=== PATIENT | female | born 1960 | race Caucasian/White ===

== ENCOUNTER → 2021-10-10 07:32 | Outpatient (CLI) | payer OTHER, SELFPAY ==
--- NOTE | ~2021-10-10 | MR_ITS ---
EXAMINATION: MR knee LT wo con DATE: 10/10/2021 08:12 INDICATION: Left knee pain TECHNIQUE: Magnetic resonance imaging (MRI) of the left knee was performed without intravenous contra st. Sequences included coronal PD-weighted FSE, coronal PD-weighted FS FSE, sagittal T2-weighted FSE , sagittal PD-weighted FS FSE and axial PD weighted fat saturated FSE. COMPARISON: None. FINDINGS: Medial compartment: Medial meniscus is normal. Articular cartilage is normal. Lateral compartment: Lateral meniscus is normal. Partial-thickness chondral fissuring involving up to 50% the cartilage th ickness and without degenerative subchondral changes at the central aspect of the lateral tibial plat eau. Patellofemoral compartment: Deep chondral fissure at the central aspect of the lateral patellar facet with small focus of underly ing subarticular edema-like marrow signal change. Trochlear cartilage is normal. Ligaments and tendons: Anterior and posterior cruciate ligaments are normal. The medial collateral ligament and fibular tristan ateral ligament complex are normal. Patellar tendon is normal. Mild distal quadriceps tendinopathy wi thout tear. The visualized medial and lateral hamstring tendons as well as the iliotibial band are no rmal. Fluid: Physiologic amount of fluid in the joint space. No loose osteochondral bodies identified. Osseous/other: Bone alignment is normal. No fracture or pathologic marrow replacing process. IMPRESSION: 1. 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 2. Mild distal quadriceps tendinopathy without tear. Reviewed, dictated and finalized at location [facility]. IMPRESSION: 1. Mild osteoarthritis with high-grade chondromalacia at the lateral patellar f acet and moderate grade chondromalacia along the lateral tibial plateau. 2. Mild distal quadriceps tendinopathy without tear.
== END ==
PROVIDERS: PCP Family Medicine; Visit Provider Orthopaedic Surgery
DX: M17.12 Unilateral primary osteoarthritis, left knee (principal)
CPT/HCPCS: 73721

== ENCOUNTER 2024-09-23 14:15 | Outpatient (CLI) | payer OTHER, SELFPAY ==
--- NOTE | ~2024-09-23 | MR_ITS ---
MRI of the left knee Clinical history: Pain Technique: Coronal proton density and proton density-weighted images, sagittal proton-density and T2 fat-sat images, and axial proton-density fat-saturated images were acquired. Findings: Anterior and posterior cruciate ligaments are intact. Medial collateral ligament and the la teral collateral ligament complex are intact. Popliteus tendon is intact. Medial and lateral menisci are intact, without evidence of tear. There is focal chondromalacia along the lateral patellar facet with focal subchondral cystic change. There is diffuse mild to moderate chondral thinning of the lateral femoral condyle. There is focal cy stic enthesopathic change noted at the anterior proximal tibia near the ACL insertion. Extensor mechanism is intact. Minimal joint effusion present. No Gaines's cyst. Impression: Mild degenerative changes, as above. No ligamentous injury or meniscal tear seen. Reviewed, dictated and finalized at [facility]. Impression: Mild degenerative changes, as above. No ligamentous injury or meniscal tear seen.
== END 2024-09-23 14:16 | disposition home or self-care (01) ==
LOC: MICIMG 14:16
PROVIDERS: PCP Family Medicine; Visit Provider Orthopaedic Surgery
DX: M17.12 Unilateral primary osteoarthritis, left knee (principal); M22.42 Chondromalacia patellae, left knee; M24.159 Other articular cartilage disorders, unspecified hip; M76.892 Other specified enthesopathies of left lower limb, excluding foot
CPT/HCPCS: 73721

== ENCOUNTER 2024-11-01 13:08 | Emergency (ER) | payer OTHER, SELFPAY ==
--- NOTE | 2024-11-01 13:17 | ED_ITS ---
HPI - Skin/Abscess/Foreign Bdy General Chief complaint: Skin/Abscess/Foreign Body Stated complaint: RASH S/P TICK BITE/DIZZY Source: patient Mode of arrival: ambulatory Limitations: no limitations History of Present Illness HPI narrative: Patient is a 63-year-old female who presents to the clinic with complaints of a tick bite to her left shoulder x 1 week ago. She states that the tick's head came out this morning. She has noticed a rash down her left shoulder that is nontender and not draining. She endorses that she has had tick bites in the past, but normally had no rash associated with it. She has tried Hydrocortisone cream, but had minimal relief. Related Data Home Medications Medication Instructions Recorded Confirmed Last Taken Type red yeast rice 600 mg capsule 600 mg PO DAILY 05/23/23 09/25/24 Unknown History carvedilol 3.125 mg tablet (Coreg) 3.125 mg PO Q12H 09/16/24 11/01/24 Unknown History magnesium 250 mg tablet 240 mg PO BID 09/25/24 09/25/24 Unknown History Allergies Allergy/AdvReac Type Severity Reaction Status Date / Time Sulfa (Sulfonamide Allergy Mild rash Verified 11/01/24 13:31 Antibiotics) Review of Systems Review of Systems: CONSTITUTIONAL: Denies body aches, fever, chills, or sweats. EYES: Denies visual changes, redness, or discharge. ENT: Denies rhinorrhea, congestion CARDIOVASCULAR: Denies chest pain, palpitations, or edema. RESPIRATORY: Denies cough or dyspnea. GASTROINTESTINAL: Denies abdominal pain, nausea, vomiting, or diarrhea. SKIN: Reports tick bite and rash to left shoulder. MUSCULOSKELETAL: Denies back pain, joint pain, or myalgia. NEUROLOGIC: Denies headache, numbness, tingling, or weakness. All systems reviewed & are unremarkable except as noted in HPI and below PMFSH Past Medical History Medical History Small intestinal bacterial overgrowth (SIBO) OBED (obstructive sleep apnea) Skin cancer Allergies Surgical History Surgical History History of cholecystectomy H/O foot surgery H/O hand surgery Family History Family History Father Cancer Mother Diabetes mellitus Hypertension Cerebrovascular accident Thyroid disorder Grandparent Cancer Heart disease Social History Social History Smoking status: Never smoker Alcohol intake: current Substance use type: does not use Current Housing: Decline to Answer Concerned About Future Housing: Decline to Answer Difficulty Paying Gas/Electric Bills: Decline to Answer Difficulty Paying for Meds: Decline to Answer Currently Unemployed: Decline to Answer Education: Decline to Answer Difficulty w/ Childcare or Family Care: Decline to Answer Living arrangements: with family Additional occupation/education comments: [employer] Gender identity (if verbalized by the patient): Female Comments At time of signature, I have reviewed and agree with nursing past medical, surgical, social and family history unless otherwise noted. Please see nursing chart for further information. There is no relevant family history pertinent to the presenting complaint. Exam Narrative: GENERAL: Well-appearing HEAD: Normocephalic, atraumatic. EYES: conjunctivae clear, and EOMI. ENT: Mucous membranes moist. Oropharynx without edema, erythema or lesions. NECK: Supple. No lymphadenopathy CHEST: Clear to auscultation. HEART: Regular rate and rhythm. SKIN: Warm, dry. Raised, erythemic rash noted to left shoulder extending from deltoid into trapezius. Nontender to palpation. No drainage noted. NEURO: Alert and oriented x3. Course Course Level of Care: Express Care Visit Vital Signs Vital signs: Vital Signs Temperature 97.7 F 11/01/24 13:22 Pulse Rate 68 11/01/24 13:22 Respiratory Rate 16 11/01/24 13:22 Blood Pressure 138/83 11/01/24 13:22 Pulse Oximetry 100 11/01/24 13:22 Temperature 97.7 F 11/01/24 13:22 Pulse Rate 68 11/01/24 13:22 Respiratory Rate 16 11/01/24 13:22 Blood Pressure 138/83 11/01/24 13:22 Pulse Oximetry 100 11/01/24 13:22 Reviewed MDM - Skin/Abscess/Foreign Bdy MDM Narrative Medical decision making narrative: Discussed physical exam findings. Doxycycline and steroid given for tick bite. Advised supportive measures and signs/symptoms to go to the ER. Pt is appropriate for outpatient treatment and follow up. Differential Diagnosis Differential diagnosis: Likely allergic reaction to drug, insect bites, contact dermatitis and other (tick bite) Critical Care Time Critical Care Time Critical Care Time: No Discharge Plan Discharge Clinical Impression: Tick bite Qualifiers: Encounter type: initial encounter Site of tick bite: shoulder Laterality: left Qualified Code(s): S40.262A - Insect bite (nonvenomous) of left shoulder, initial encounter Patient Disposition: Home Condition: Stable Instructions: Lyme Disease (ED) Additional Instructions: Take the antibiotic as directed Keep site clean and dry For 30 days following the tick bite Watch for: Signs of infection including Increased pain, swelling, warmth, bite red streaks bleeding from the bite or pus draining from the bite. Fever. New rash, especially a bull’s eye appearance which is a characteristic of Lyme disease, or any rash that expands from the site. Flu like symptoms including fevers, chills, body aches, fatigue or headache. If you think the tick was attached for over 30 hours, especially deer tick, go to the emergency room Minor redness or swelling at the site of the tick bite is often a normal reaction and should subside within a few days. Follow up with your primary care provider as needed in 1 week Go to the ER for worsening symptoms or concerns Patient Language: Portuguese Prescriptions: New doxycycline hyclate 100 mg tablet 100 mg PO BID 10 Days Qty: 20 0RF prednisone 20 mg tablet 40 mg PO DAILY 5 Days Qty: 10 0RF No Action red yeast rice 600 mg capsule 600 mg PO DAILY Rx Instructions: give with meal/snack carvedilol [Coreg] 3.125 mg tablet 3.125 mg PO Q12H Rx Instructions: must administer with a meal/food magnesium 250 mg tablet 240 mg PO BID diclofenac sodium 75 mg tablet,delayed release (DR/EC) See Rx Instructions .ROUTE .COMPLEX Qty: 60 1RF Dose Instruction: TAKE 1 TABLET BY MOUTH TWICE A DAY Rx Instructions: TAKE 1 TABLET BY MOUTH TWICE A DAY Follow-up/Referrals: Kiet,Michael Herring MD [Primary Care Provider] - Time of Disposition: 13:49
[2024-11-01 13:22] VITALS: BP 138/83; PULSE 68; RESP 16; TEMP 36.5; O2SAT 100
== END 2024-11-01 14:00 | disposition home or self-care (01) ==
PROVIDERS: PCP Family Medicine
DX: S40.262A Insect bite (nonvenomous) of left shoulder, initial encounter (principal); W57.XXXA Bitten or stung by nonvenomous insect and other nonvenomous arthropods, initial encounter; Z85.828 Personal history of other malignant neoplasm of skin
CPT/HCPCS: 99213; G0463